=== PATIENT | male | born 1970 | race Two or more races ===

== ENCOUNTER 2025-06-06 07:00 | Day surgery (SDC) | payer OTHER ==
[2025-05-23 13:48] VITALS: BP 130/90
[2025-05-23 13:52] LABS: BASO % 0.8 % (0.1-1.2); EOS # 0.08 (0.04-0.54); EOS % 1.6 % (0.7-7.0); LYMPH # 1.46 (1.18-3.74); LYMPH % 29.9 % (19.3-53.1); MEAN PLATELET VOLUME 8.50 fl (9.4-12.4); MONO # 0.32 (0.24-0.82); MONO % 6.5 % (4.7-12.5); NEUT # 2.97 (1.56-6.13); NEUT % 60.8 % (34.0-71.1); RED CELL DISTRIBUTION WIDTH 12.2 % (11.6-14.4)
[2025-05-23 14:02] LABS: URINE APPEARANCE Clear; URINE BILIRRUBIN Negative (NEGATIVE); URINE BLOOD Negative; URINE COLOR Dark Yellow; URINE GLUCOSE Negative (NEGATIVE); URINE KETONE Trace (NEGATIVE); URINE LEUKOCYTE Negative; URINE NITRATE Negative; URINE PROTEIN Negative (NEGATIVE); URINE UROBILINOGEN 0.2 E.U./dl
[2025-05-23 14:06] LABS: URINE BACTERIA 2.4 uL (0.0-1933); URINE CAST 0.29 uL (0.0-1.40); URINE EPITHELIAL CELLS 0.6 uL (0.0-38.8); URINE RBC 1.0 uL (0.0-20.8); URINE WBC 1.2 uL (0.0-23.2)
[2025-05-23 14:25] LABS: INR 0.98
[2025-05-23 14:33] LABS: ALT/SGPT 26.0 U/L (12-78); AST/SGOT 21.0 U/L (15-37); BILIRUBIN TOTAL 0.65 mg/dL (0.3-1.2); BUN CREA RATIO 20.0 (7.0-25.0); CREATININE SERUM 0.83 mg/dL (0.70-1.30); GFR 96.91; GLOBULINA 3.2 G/DL (2.4-3.5); GLUCOSE FASTING 95.0 mg/dL (65-100); OSMOLALITY SERUM 286.0 MOSM/KG (275-295)
[~2025-06-06] VITALS: Ht 175.3 cm; Wt 83.9 kg
[2025-06-06] MEDS ORDERED: CIPROFLOXACIN IN 5 % DEXTROSE 400 MG/200 ML PIGGYBAG IV ONE (07:25)
[2025-06-06] MEDS ORDERED: BUPIVACAINE HCL/MPF 0.5% 30ML VIAL ONE (08:50)
[2025-06-06] MEDS ORDERED: LIDOCAINE HCL 1%/EPINEPHRINE 20ML VIAL IJ ONE (08:50)
[2025-06-06] MEDS ORDERED: SUGAMMADEX SODIUM 200 MG/2 ML VIAL IV ONE (10:12)
== END 2025-06-06 14:05 | disposition home or self-care (01) ==
LOC: CIR.AMB 07:00
PROVIDERS: ATTEND Surgery
DX: K40.20 Bilateral inguinal hernia, without obstruction or gangrene, not specified as recurrent (principal)
CPT/HCPCS: 49650; C1781